=== PATIENT | male | born 1930 | race Hispanic/Latino ===

== ENCOUNTER 2019-01-03 17:04 | Observation (INO) | payer MEDICARE ==
[~2019-01-03] VITALS: Ht 165.1 cm; Wt 59.0 kg
[2019-01-03 18:48] LABS: APPEARANCE,URINE Clear (CLEAR); BILIRUBIN,URINE Negative (NEGATIVE); COLOR,URINE Yellow (YELLOW); GLUCOSE, URINE (UA) Negative (NEGATIVE); KETONES,URINE Negative (NEGATIVE); LEUKOCYTE ESTERASE ,URINE Negative (NEGATIVE); NITRATE,URINE Negative (NEGATIVE); OCCULT BLOOD,URINE Moderate (NEGATIVE); PROTEIN,URINE Negative (NEGATIVE)
[2019-01-03 18:54] LABS: BACTERIA,URINE Rare /HPF (None Seen); SQUAMOUS EPITHELIAL CELL,UR Rare /HPF (0-2); WBC,URINE 0-1 /HPF (0-1)
[2019-01-03 19:11] LABS: BASOPHILS % (AUTO) 0.1 % (0.0-5.0); EOSINOPHILS % (AUTO) 0.3 % (0.0-8.0); HEMATOCRIT 36.1 % (42-54); LYMPHOCYTES % (AUTO) 10.6 % (21.0-51.0); MEAN CORPUSCULAR HEMOGLOBIN 37.1 pg (27.0-33.0); MEAN CORPUSCULAR HGB CONC 34.8 g/dL (32.0-36.0); MEAN CORPUSCULAR VOLUME 106.8 fL (79-99); MONOCYTES % (AUTO) 7.9 % (3.0-13.0); NEUTROPHILS % (AUTO) 81.1 % (40.0-77.0); PLATELET COUNT (AUTO) 107 K/uL (130-400); RED BLOOD CELL COUNT(AUTO) 3.39 MIL/uL (4.50-6.20); RED CELL DISTRIBUTION WIDTH 14.4 % (11.0-15.5); WHITE BLOOD COUNT (AUTO) 5.7 K/uL (4.8-10.8)
[2019-01-03 19:22] LABS: CREATININE 1.6 mg/dL (0.5-1.5); POTASSIUM 3.9 mmol/L (3.5-5.1)
[2019-01-03 19:26] LABS: ALBUMIN 3.6 g/dL (3.5-5.0); BILIRUBIN,TOTAL 0.7 mg/dL (0.2-1.0)
[2019-01-03] MEDS ORDERED: SODIUM CHLORIDE 0.9% 500ML 500 ML IV ONE (19:29)
[2019-01-03] MEDS ORDERED: CEFTRIAXONE SODIUM 1 GM ONE (20:17)
[2019-01-03] MEDS ORDERED: ACETAMINOPHEN 325 MG TAB PO PRN (21:00)
[2019-01-03] MEDS ORDERED: ONDANSETRON HCL 4 MG/2 ML VIAL IV PRN (21:00)
[2019-01-03] MEDS ORDERED: MORPHINE SULFATE 2 MG/ML 1ML SYG IV PRN (21:00)
[2019-01-03] MEDS ORDERED: ONDANSETRON HCL 4 MG/2 ML VIAL ONE (21:37)
[2019-01-03] MEDS ORDERED: MORPHINE SULFATE 2 MG/ML 1ML SYG ONE (21:37)
[2019-01-03] MEDS ORDERED: HYDRALAZINE HCL 20 MG/ML VIAL ONE (21:37)
[2019-01-03 23:30] VITALS: BP 151/91
[2019-01-04] VITALS (7 sets, daily range): BP systolic 96–182; BP diastolic 56–82
[2019-01-04] MEDS: SODIUM CHLORIDE 0.9% 1000ML 1,000 ML IV SCH ×3 (00:07→17:42)
[2019-01-04] MEDS ORDERED: DEXTROSE 50%-WATER 50 ML DISP.SYRIN IV ONE (05:25)
[2019-01-04] MEDS: ENOXAPARIN SODIUM 30 MG/0.3 ML SQ SCH (07:44)
[2019-01-04] MEDS: FAMOTIDINE 20MG TAB 20 MG TAB PO SCH (07:48)
[2019-01-04] MEDS: HYDRALAZINE HCL 20 MG/ML VIAL IV PRN ×2 (07:49→19:53)
--- NOTE | 2019-01-04 13:00 | NUR ---
INITIAL MET WITH PATIENT & FAMILY AT BEDSIDE, PT STATES LIVES WITH SPOUSE, DAUGHTER LISTED ON [employer]SE FOR TRANSPORT NEEDS, HAS CAN, SEN JARA AND W/.CHAIR, 4 HRS PROVIDER SERVICE DIALY, AND WAS SENT FROM DR. HOGUE OFFICE FOR UNRINARY RETENTION. DC PLAN IS HOME, JUANCHO TO FOLLOW Addendum: 01/04/19 at 1621 by WESLY MURI RN CM Amended: Links added.
[2019-01-04] MEDS: CEFTRIAXONE SODIUM 1 GM IV SCH (17:42)
[2019-01-05] MEDS ORDERED: DIPH1TAB24 PO (00:08)
[2019-01-05] MEDS ORDERED: SIMV20TA6 PO (00:08)
[2019-01-05] MEDS ORDERED: FOLI1TAB61 PO (00:08)
[2019-01-05] MEDS ORDERED: LEVO500T89 PO (00:08)
[2019-01-05] MEDS ORDERED: TAMS-1 PO (00:08)
[2019-01-05] MEDS ORDERED: FERR325T22 PO (00:08)
[2019-01-05] MEDS ORDERED: LISI10TA7 PO (00:08)
[2019-01-05] MEDS ORDERED: ESOM40CA54 PO (00:08)
[2019-01-05] MEDS ORDERED: CHOL100018 PO (00:08)
[2019-01-05] MEDS ORDERED: GLIM4TAB3 PO ×2 (00:08→10:27)
[2019-01-05 04:07] VITALS: BP 153/77
[2019-01-05 05:19] LABS: BASOPHILS % (AUTO) 0.2 % (0.0-5.0); EOSINOPHILS % (AUTO) 1.7 % (0.0-8.0); HEMATOCRIT 31.9 % (42-54); LYMPHOCYTES % (AUTO) 27.2 % (21.0-51.0); MEAN CORPUSCULAR HEMOGLOBIN 37.3 pg (27.0-33.0); MEAN CORPUSCULAR HGB CONC 34.5 g/dL (32.0-36.0); MONOCYTES % (AUTO) 8.5 % (3.0-13.0); NEUTROPHILS % (AUTO) 62.4 % (40.0-77.0); PLATELET COUNT (AUTO) 102 K/uL (130-400); RED BLOOD CELL COUNT(AUTO) 2.95 MIL/uL (4.50-6.20); WHITE BLOOD COUNT (AUTO) 6.4 K/uL (4.8-10.8)
[2019-01-05 05:39] LABS: CREATININE 1.3 mg/dL (0.5-1.5); POTASSIUM 3.6 mmol/L (3.5-5.1)
[2019-01-05 07:00] VITALS: BP 145/79
[2019-01-05] MEDS ORDERED: TAMSULOSIN HCL 0.4 MG CAP.ER.24H PO SCH (09:00)
[2019-01-05] MEDS: FAMOTIDINE 20MG TAB 20 MG TAB PO SCH (10:09)
[2019-01-05] MEDS: ENOXAPARIN SODIUM 30 MG/0.3 ML SQ SCH (10:10)
[2019-01-05] MEDS: SODIUM CHLORIDE 0.9% 1000ML 1,000 ML IV SCH (10:10)
[2019-01-05] MEDS ORDERED: AMLO2.5T2 PO (10:27)
[2019-01-05] MEDS ORDERED: AMLODIPINE BESYLATE 2.5 MG TAB PO SCH (10:30)
[2019-01-05 11:00] VITALS: BP 137/98
--- NOTE | 2019-01-05 14:00 | NUR ---
DISCHARGE PLANNING CHANGE RECD CALL FROM PRIMARY RN THAT PT'S FAMILY RAISED CONCERNS THAT THERE WAS NO ONE TO HELP WITH THE PATIENTS MCCOY CATH AND THAT THE PATIENT WAS SIGNIFICANTLY WEAKER SINCE ADMISSION. DISCUSSION-PT IS 2 DAYS OBS, NEED OT RESEARCH TO SEE IF CAN ROLL TO INPATIENT DISCUSSED HOME HEALTH ORDER WITH ANSLEY SMILEY FROM DR. HILARIO OFFICE- THAT DR. HILARIO IS OUT, THE BIOPSY WAS POSITIVE AND MD NEED TO DISCUSS RESULT ON THE 12TH WHICH IS WHEN HE COMES FOR FOLLOW UP, WILL NOT SIGN HH ORDERS AT THIS TIME, JUST PLS DON'T TAKE OUT MCCOY OR DO BLADDER TRAINING. GOT ORDER FROM DR. WIGGINS FOR REHAB- 07/03 TO PTS FAMILY CONCERNS RE DECREASED STRENGTH. CALL TO [facility]. WILL COME EVALUATE. ORDER FOR CT ABD RE URINARY RETENTION. Addendum: 01/05/19 at 1550 by WESLY MUIR RN CM Amended: Links added.
--- NOTE | 2019-01-05 15:51 | NUR ---
FAMILY WANTS TO TAKE PT HOME W HH RECD CALL FROM SHERMAN CAMACHO THAT PT WANTS TO GO HOME WITH HH; PENDING SET UP. Addendum: 01/05/19 at 1552 by WESLY MUIR RN CM Amended: Links added.
[2019-01-05 16:00] VITALS: BP 163/72
--- NOTE | 2019-01-05 16:20 | NUR ---
FINAL DC PLAN-- HOME PER FAMILY ADVISED BY KAYA DAUGHTER VIA [employer] SHE HAS ARRANGED HOME CARE AND HAS HOME HEALTH ORDERS PER JERAD JACKSON AT BEDSIDE TODAY DID NOT KNOW- WATS PT TO GO HOEM TO FOLLOW UP WITH . SEBASTIÁN HULL RN, WHO WILL LET DR. WIGGINS KNOW. Addendum: 01/05/19 at 1625 by WESLY MUIR RN Amended: Links added.
--- NOTE | 2019-01-05 16:37 | NUR ---
FAMILY REQUEST CALL RECD FROM PRIMARY JANICE OLIVEROS WHEEL CHAIR RX; ADVISED HER THAT WE CANNOT SET UP W/CHAIR WITHOUT HER PMD; PLS ADVISED FAMILY TO FOLLOW UP WITH PMD FOR WHEEL CHAIR. INIITAL ASSESSMENT NOTES REVIEWED- PT/FAMILY STATE AVAILABLE ROLLING WALKER W SEAT Addendum: 01/05/19 at 1720 by WESLY MUIR RN CM Amended: Links added.
[2019-01-05] MEDS: CEFTRIAXONE SODIUM 1 GM IV SCH (16:52)
--- NOTE | 2019-01-05 17:32 | NUR ---
INSTRUCTED FAMILY GRANDDAUGHTER ON HOW TO MAHNAGE MCCOY CATH ,EMPTING, AND RECORRDING OUTPUT. LET FAMILY KNOW MAY SHOWER AND CLEAN MCCOY WITH SOAPAND WATER . LET THEM KNOW ON FOLLOW UP WITH DOCTORS . CALVIN RECORDED HOW TO CLEAN AND EMPTY BAG USING HER PHONE TO SEND TO KAYA DAUGHTER OF PATIENT WHO WILL BE RESPONSIBLE FOR CARE OF PATIENT .
== END 2019-01-05 18:00 | disposition home or self-care (01) ==
LOC: EDH 17:04 → EDHIP 17:05 → 3CH 23:00
PROVIDERS: ADMIT Family Medicine; ATTEND Family Medicine
DX: N40.1 Benign prostatic hyperplasia with lower urinary tract symptoms (principal); R33.9 Retention of urine, unspecified; E11.22 Type 2 diabetes mellitus with diabetic chronic kidney disease; E78.2 Mixed hyperlipidemia; E86.0 Dehydration; N17.9 Acute kidney failure, unspecified; I12.9 Hypertensive chronic kidney disease with stage 1 through stage 4 chronic kidney disease, or unspecified chronic kidney disease; N18.9 Chronic kidney disease, unspecified; N13.8 Other obstructive and reflux uropathy; N39.0 Urinary tract infection, site not specified; R29.6 Repeated falls; Z90.49 Acquired absence of other specified parts of digestive tract; Z79.899 Other long term (current) drug therapy
CPT/HCPCS: 36415 ×2; 80048; 80053; 81001; 82948 ×7; 83605; 84145; 84484; 85025 ×2; 87040 ×2; 87088; 93005; 96361 ×2; 96372; 96374; 96375; 96376 ×2; 97039; 97161; 99284; G0378 ×46; G8979; G8980; G8981; G8982; G8983; J0360 ×3; J0696 ×3; J1650; J2405; J7040; J7070